=== PATIENT | female | born 2000 | race Caucasian/White ===

== ENCOUNTER 2023-08-23 13:17 | Emergency (ER) | payer OTHER, SELFPAY ==
[2023-08-23] MEDS: METOCLOPRAMIDE INJ 10MG/2ML VIAL IV ONE (15:03)
[2023-08-23] MEDS: NS 1,000 ML IV ONE (15:03)
[2023-08-23 15:38] LABS: BASO % 0.3 % (0.0-1.0); EOS % 0.3 % (0.0-3.0); HEMATOCRIT 41.9 % (36.0-47.0); HEMOGLOBIN 14.1 g/dl (12.0-15.5); LYMPH # 0.7 10^3/uL (1.5-5.0); LYMPH % 9.1 % (24.0-44.0); MEAN CORPUSCULAR HEMOGLOBIN 29.4 pg (27.0-33.0); MEAN CORPUSCULAR HGB CONC 33.7 g/dl (32.0-36.5); MEAN CORPUSCULAR VOLUME 87.3 fl (80.0-96.0); MONO # 0.9 10^3/uL (0.0-0.8); MONO % 12.3 % (2.0-8.0); NEUTROPHILS # 5.6 10^3/uL (1.5-8.5); NEUTROPHILS % 77.6 % (36.0-66.0); PLATELET COUNT, AUTOMATED 226 10^3/uL (150-450); WHITE BLOOD COUNT 7.2 10^3/uL (4.0-10.0)
[2023-08-23] MEDS ORDERED: OSEL75CA PO (16:21)
[2023-08-23 16:31] LABS: BLOOD UREA NITROGEN 9 MG/DL (9-23); CALCIUM LEVEL 9.7 MG/DL (8.5-10.1); CARBON DIOXIDE LEVEL 25 MMOL/L (20-31); CHLORIDE LEVEL 100 MMOL/L (98-107); CREATININE FOR GFR 0.47 MG/DL (0.55-1.30); GLOMERULAR FILTRATION RATE > 60.0 (>60); GLUCOSE, FASTING 70 MG/DL (60-100); SODIUM LEVEL 134 MMOL/L (136-145)
[2023-08-23 16:58] LABS: HCG, SERUM QUANTITATIVE 132982.2 MIU/ML (<4.2)
[2023-08-23] MEDS ORDERED: REGL10TA6 PO (17:30)
[2023-08-23 17:32] VITALS: BP 124/72; TEMP 99.4; O2SAT 100
== END 2023-08-23 17:48 | disposition home or self-care (01) ==
LOC: M ED 13:17
DX: O98.511 Other viral diseases complicating pregnancy, first trimester (principal); Z3A.08 8 weeks gestation of pregnancy
CPT/HCPCS: 80048; 81001; 84702; 85025; 87486; 87581; 87633; 87798; 96361; 96374; 99284; J2765

== ENCOUNTER 2023-11-04 21:04 | Emergency (ER) | payer OTHER ==
[~2023-11-04] VITALS: Ht 157.5 cm; Wt 63.0 kg
[~2023-11-04 21:04] MED LIST: OSEL75CA PO; REGL10TA6 PO
[2023-11-04 21:53] LABS: BASO # 0.1 10^3/uL (0.0-0.2); BASO % 0.4 % (0.0-1.0); EOS # 0.3 10^3/uL (0.0-0.5); EOS % 1.8 % (0.0-3.0); HEMATOCRIT 40.2 % (36.0-47.0); HEMOGLOBIN 13.5 g/dl (12.0-15.5); LYMPH # 2.2 10^3/uL (1.5-5.0); LYMPH % 15.5 % (24.0-44.0); MEAN CORPUSCULAR HEMOGLOBIN 30.1 pg (27.0-33.0); MEAN CORPUSCULAR HGB CONC 33.6 g/dl (32.0-36.5); MEAN CORPUSCULAR VOLUME 89.5 fl (80.0-96.0); MONO % 7.1 % (2.0-8.0); NEUTROPHILS # 10.5 10^3/uL (1.5-8.5); NEUTROPHILS % 74.6 % (36.0-66.0); PLATELET COUNT, AUTOMATED 291 10^3/uL (150-450); RED BLOOD COUNT 4.49 10^6/uL (4.00-5.40); WHITE BLOOD COUNT 14.1 10^3/uL (4.0-10.0)
[2023-11-04 22:09] LABS: LIPASE 34 U/L (12-53)
[2023-11-04 22:12] LABS: ALBUMIN 3.2 G/DL (3.2-5.2); ALKALINE PHOSPHATASE 66 U/L (46-116); ALT/SGPT 18 U/L (7.0-40); AST/SGOT 18 U/L (<34); BILIRUBIN,DIRECT 0.1 MG/DL (<0.4); BILIRUBIN,TOTAL 0.5 MG/DL (0.3-1.2); BLOOD UREA NITROGEN 6 MG/DL (9-23); CALCIUM LEVEL 9.6 MG/DL (8.5-10.1); CARBON DIOXIDE LEVEL 24 MMOL/L (20-31); CHLORIDE LEVEL 103 MMOL/L (98-107); CREATININE FOR GFR 0.47 MG/DL (0.55-1.30); GLOMERULAR FILTRATION RATE > 60.0 (>60); GLUCOSE, FASTING 77 MG/DL (60-100); POTASSIUM SERUM 4.1 MMOL/L (3.5-5.1); SODIUM LEVEL 136 MMOL/L (136-145); TOTAL PROTEIN 6.5 G/DL (5.7-8.2)
[2023-11-04 22:26] LABS: HCG, SERUM QUANTITATIVE 41614.4 MIU/ML (<4.2)
[2023-11-04] MEDS: ONDANSETRON 4MG ORAL DISINTEGRATING TAB PO ONE (23:05)
[2023-11-05 01:17] LABS: APPEARANCE, URINE HAZY (CLEAR); BACTERIA, URINE AUTO 3+ (NEGATIVE); BILIRUBIN, URINE AUTO NEGATIVE (NEGATIVE); BLOOD, URINE BLOOD NEGATIVE (NEGATIVE); COLOR, URINE YELLOW (YELLOW); GLUCOSE, URINE (UA) AUTO NEGATIVE (NEGATIVE); KETONE, URINE AUTO 2+ mg/dL (NEGATIVE); LEUKOCYTE ESTERASE, URINE AUTO TRACE (NEGATIVE); MUCUS, URINE SMALL (NEGATIVE); NITRITE, URINE AUTO NEGATIVE (NEGATIVE); PROTEIN, URINE AUTO 1+ mg/dL (NEGATIVE); RBC, URINE AUTO 4 /HPF (0-3); SQUAMOUS EPITHELIAL CELL UR AU 3 /HPF (0-6); UROBILINOGEN, URINE AUTO 0.2 mg/dL (0.0-2.0); WBC, URINE AUTO 9 /HPF (0-3)
[2023-11-05] MEDS ORDERED: MACR100C43 PO (01:22)
[2023-11-05] MEDS ORDERED: ONDA4TAB6 PO (01:22)
[2023-11-05] MEDS: NITROFURANTOIN (MACROBID) 100 MG CAP PO ONE (01:28)
[2023-11-05 01:41] VITALS: BP 127/78; TEMP 97.9; O2SAT 99
== END 2023-11-05 01:42 | disposition home or self-care (01) ==
LOC: M ED 21:04
DX: O21.9 Vomiting of pregnancy, unspecified (principal); O23.42 Unspecified infection of urinary tract in pregnancy, second trimester; Z3A.18 18 weeks gestation of pregnancy

== ENCOUNTER → 2023-11-09 | Outpatient (CLI) | payer OTHER ==
[~2023-11-09] MED LIST changes: +MACR100C43 PO; +ONDA-282 PO
== END ==
LOC: M RAD 15:59
PROVIDERS: ATTEND Advanced Practice Midwife
DX: Z34.02 Encounter for supervision of normal first pregnancy, second trimester (principal); Z3A.19 19 weeks gestation of pregnancy

== ENCOUNTER → 2023-11-23 | Outpatient (CLI) | payer OTHER ==
[2023-11-23 15:48] LABS: HEMATOCRIT 36.8 % (36.0-47.0); HEMOGLOBIN 12.3 g/dl (12.0-15.5); MEAN CORPUSCULAR HGB CONC 33.4 g/dl (32.0-36.5); MEAN CORPUSCULAR VOLUME 92.7 fl (80.0-96.0); PLATELET COUNT, AUTOMATED 263 10^3/uL (150-450); RED BLOOD COUNT 3.97 10^6/uL (4.00-5.40); WHITE BLOOD COUNT 13.4 10^3/uL (4.0-10.0)
[2023-11-23 16:11] LABS: THYROID STIMULATING HORMONE 1.082 uIU/ML (0.55-4.78)
[2023-11-23 16:46] LABS: HIV 1&2 SCREEN NEGATIVE (NEGATIVE)
[2023-11-23 16:52] LABS: HEPATITIS C VIRUS ABY INDEX < 0.02 INDEX (<0.8)
[2023-11-23 17:16] LABS: GC DNA AMPLIFICATION NEGATIVE (NEGATIVE)
== END ==
LOC: M PLALAB 11:55
PROVIDERS: ATTEND Advanced Practice Midwife
DX: Z34.02 Encounter for supervision of normal first pregnancy, second trimester (principal)

== ENCOUNTER 2023-12-07 22:51 | Outpatient (CLI) | payer OTHER ==
[~2023-12-07] VITALS: Ht 157.5 cm; Wt 68.3 kg
[2023-12-07 23:04] VITALS: BP 113/64; O2SAT 98
[2023-12-07] MEDS ORDERED: PRENTAB9 PO (23:16)
[2023-12-07] MEDS ORDERED: HOME MED LIST COMPLETE! XX SCH (23:20)
== END 2023-12-07 23:30 | disposition home or self-care (01) ==
LOC: M LDO 22:51
PROVIDERS: ATTEND Advanced Practice Midwife
DX: O36.8120 Decreased fetal movements, second trimester, not applicable or unspecified (principal); Z3A.23 23 weeks gestation of pregnancy
CPT/HCPCS: 59025; G0463

== ENCOUNTER → 2023-12-21 | Outpatient (CLI) | payer OTHER ==
[~2023-12-21] MED LIST changes: +PRENTAB9 PO
[2023-12-21 13:43] LABS: HEMATOCRIT 35.8 % (36.0-47.0); HEMOGLOBIN 11.8 g/dl (12.0-15.5); MEAN CORPUSCULAR HEMOGLOBIN 30.8 pg (27.0-33.0); MEAN CORPUSCULAR VOLUME 93.5 fl (80.0-96.0); PLATELET COUNT, AUTOMATED 278 10^3/uL (150-450); RED BLOOD COUNT 3.83 10^6/uL (4.00-5.40); WHITE BLOOD COUNT 15.3 10^3/uL (4.0-10.0)
[2023-12-21 14:32] LABS: HIV 1&2 SCREEN NEGATIVE (NEGATIVE)
[2023-12-21 14:39] LABS: HEPATITIS C VIRUS ABY INDEX < 0.02 INDEX (<0.8)
[2023-12-21 14:41] LABS: GC DNA AMPLIFICATION NEGATIVE (NEGATIVE)
== END ==
LOC: M PLALAB 10:44
PROVIDERS: ATTEND Advanced Practice Midwife
DX: Z34.80 Encounter for supervision of other normal pregnancy, unspecified trimester (principal)

== ENCOUNTER → 2023-12-28 | Outpatient (CLI) | payer OTHER | LOC: M PLALAB 12:44 | PROVIDERS: ATTEND Advanced Practice Midwife | DX: Z34.02 Encounter for supervision of normal first pregnancy, second trimester (principal) ==